=== PATIENT | male | born 1930 | race Asian ===

== ENCOUNTER 2017-03-04 14:00 | Outpatient (RCR) | payer MEDICARE, BC | END 2017-03-09 | disposition home or self-care (01) | LOC: WSPT | DX: Z47.1 Aftercare following joint replacement surgery (principal); M25.862 Other specified joint disorders, left knee; Z96.652 Presence of left artificial knee joint | CPT/HCPCS: G8978-GP; G8979-GP ==

== ENCOUNTER 2017-05-12 16:00 | Outpatient (RCR) | payer MEDICARE, BC | END 2017-06-02 09:14 | disposition home or self-care (01) | LOC: WSPT 16:00 | DX: Z47.1 Aftercare following joint replacement surgery (principal); Z96.652 Presence of left artificial knee joint | CPT/HCPCS: G8978-GP; G8979-GP; G8980-GP ==

== ENCOUNTER 2018-06-04 15:30 | Outpatient (RCR) | payer MEDICARE, BC ==
[2004-09-17 08:55] VITALS: TEMP 97
[2018-06-19] MEDS ORDERED: ELIQUIS 5MG PO (23:59)
[2018-06-20] MEDS ORDERED: LIPITOR 40MG TA40 MG PO
[2018-06-20] MEDS ORDERED: CALCITRATE 3151 TAB PO (00:01)
[2018-06-20] MEDS ORDERED: THE MEDICINE S200 M2 PO (00:02)
[2018-06-20] MEDS ORDERED: GOOD NEIGH1200 MG/15 (00:03)
[2018-06-20] MEDS ORDERED: FLOMAX 0.40.4 MG/CAP PO (00:03)
[2018-06-20] MEDS ORDERED: SYNTHROID0.1 MG/TAB PO (00:04)
[2018-06-20] MEDS ORDERED: PROCARDIA XL 3030 MG PO (00:04)
[2018-06-20] MEDS ORDERED: PRILOSEC 20MG20 MG PO (00:05)
[2018-06-20] MEDS ORDERED: PROAIR HFA0.09 MG/AC IH (00:06)
[2018-06-20] MEDS ORDERED: B-121000 MCG PO (00:09)
[2018-06-20] MEDS ORDERED: OMEGA-3 FISH1000 MG PO (00:09)
[2018-06-20] MEDS ORDERED: VITAMIN D 1001000 IU PO (00:10)
[2018-06-20] MEDS ORDERED: HCTZ12.5TAB PO (00:12)
[2018-06-22] MEDS ORDERED: LEVAQUIN 5500 MG/TA1 PO (03:19)
[2018-06-25] MEDS ORDERED: CEFTIN500 MG PO (14:09)
[2018-06-25] MEDS ORDERED: COMBIRESP IH (14:10)
[2018-06-25] MEDS ORDERED: PREDNISONE20 MG PO (14:13)
[2018-06-25] MEDS ORDERED: K-TAB20 PO (14:16)
[2018-06-25] MEDS ORDERED: LASIX 20MG TABL20 MG PO (14:16)
== END 2018-06-29 16:06 | disposition home or self-care (01) ==
LOC: WSPT 15:30
DX: M47.816 Spondylosis without myelopathy or radiculopathy, lumbar region (principal); M48.061 Spinal stenosis, lumbar region without neurogenic claudication; M41.86 Other forms of scoliosis, lumbar region

== ENCOUNTER 2018-06-19 22:52 | Observation (INO) | payer MEDICARE, BC ==
[~2018-06-19] VITALS: Ht 160 cm; Wt 65.4 kg
[2018-06-19 23:51] LABS: HEMATOCRIT 39.4 % (42.0-52.0); HEMOGLOBIN 13.6 g/dl (13.5-18.0); MEAN CELL VOLUME 95 fl (80.0-100.0); MEAN CORPUSCULAR HEMOGLOBIN 33 pg (27.0-31.0); MEAN CORPUSCULAR HGB CONC 35 g/dl (33.0-37.0); PLATELET COUNT 50 K/mm3 (130-400); RED BLOOD COUNT 4.13 M/mm3 (4.20-5.60); REDCELL DISTRIBUTION WIDTH-CV 13.6 % (11.5-14.5)
[2018-06-19 23:56] LABS: INR 1.6 (0.8-3.0); PROTHROMBIN TIME 18.2 SECONDS (9.7-12.8)
[2018-06-19 23:59] LABS: PARTIAL THROMBOPLASTIN TIME 30.6 SECONDS (26.0-37.0)
[2018-06-19] MEDS ORDERED: ELIQUIS 5MG PO (23:59)
[2018-06-20] LABS: ALANINE AMINOTRANSFERASE 19 U/L (21-72); ALBUMIN 3.6 gm/dL (3.5-5.0); ALKALINE PHOSPHATASE 91 U/L (50-136); ANION GAP 9 mmol/L (7-16); AST,SGOT 25 U/L (15-37); BILIRUBIN,TOTAL 0.7 mg/dL (0.0-1.0); BLOOD UREA NITROGEN 22 mg/dL (9-20); C-REACTIVE PROTEIN 6.6 mg/dL (0.0-0.9); CARBON DIOXIDE 26 mmol/L (22-30); CHLORIDE 94 mmol/L (98-107); CREATININE, serum 0.67 (0.66-1.25); GLUCOSE 127 mg/dL (74-106); LIPASE 26 U/L (23-300); POTASSIUM 4.1 mmol/L (3.4-5.0); SODIUM 129 mmol/L (137-145); TOTAL PROTEIN 6.4 gm/dL (6.4-8.2)
[2018-06-20] MEDS ORDERED: LIPITOR 40MG TA40 MG PO
[2018-06-20] MEDS ORDERED: CALCITRATE 3151 TAB PO (00:01)
[2018-06-20] MEDS ORDERED: THE MEDICINE S200 M2 PO (00:02)
[2018-06-20] MEDS ORDERED: GOOD NEIGH1200 MG/15 (00:03)
[2018-06-20] MEDS ORDERED: FLOMAX 0.40.4 MG/CAP PO (00:03)
[2018-06-20] MEDS ORDERED: SYNTHROID0.1 MG/TAB PO (00:04)
[2018-06-20] MEDS ORDERED: PROCARDIA XL 3030 MG PO (00:04)
[2018-06-20] MEDS ORDERED: PRILOSEC 20MG20 MG PO (00:05)
[2018-06-20] MEDS ORDERED: PROAIR HFA0.09 MG/AC IH (00:06)
[2018-06-20] MEDS ORDERED: OMEGA-3 FISH1000 MG PO (00:09)
[2018-06-20] MEDS ORDERED: B-121000 MCG PO (00:09)
[2018-06-20 00:10] LABS: TROPONIN-I < 0.012 ng/mL (0.000-0.035)
[2018-06-20] MEDS ORDERED: VITAMIN D 1001000 IU PO (00:10)
[2018-06-20] MEDS ORDERED: HCTZ12.5TAB PO (00:12)
[2018-06-20 00:38] LABS: BAND 22 % (0-10); EOSINOPHIL 2 % (0-4); LYMPHOCYTE 11 % (20.0-51.0); NEUTROPHILS 57 % (42.0-75.2); OVALOCYTES 1+; PLATELET ESTIMATE DECREASED (NORMAL)
[2018-06-20 00:39] LABS: HYPOCHROMIA 1+
[2018-06-20 01:11] LABS: COLLECTION METHOD CLEAN CATCH
[2018-06-20 01:17] LABS: MUCOUS Present /lpf; PH 7 (5-8); SQUAMOUS EPITHELIAL None Seen /hpf; URINE APPEARANCE Clear; URINE BACTERIA None Seen /hpf; URINE BILIRUBIN Negative (NEGATIVE); URINE BLOOD Negative (NEGATIVE); URINE COLOR Yellow; URINE GLUCOSE Negative (NEGATIVE); URINE KETONE Negative (NEGATIVE); URINE LEUKOCYTE ESTERASE Negative (NEGATIVE); URINE NITRATE Negative (NEGATIVE); URINE PROTEIN(semi-quant) Negative (NEGATIVE); URINE RBC 0-2 /hpf; URINE UROBILINOGEN Negative (NEGATIVE)
[2018-06-20 04:17] VITALS: BP 117/73; PULSE 87; TEMP 97.4
--- NOTE | 2018-06-20 04:54 | NUR ---
PT ADMITTED FROM .. WITH ABD PAIN, ELEVATED TEMPERATURE, POSSIBLY CHOLECYSTITIS. SEE 5 PAGE ASSESSMENT.
--- NOTE | 2018-06-20 06:42 | NUR ---
RESTING QUIETLY. NO c/o PAIN. NO N/V. NO DYSPNEA. PT VOIDING. PT DENIES ABDOMINAL DISCOMFORT.
[2018-06-20 07:02] LABS: MEAN CELL VOLUME 97 fl (80.0-100.0); MEAN CORPUSCULAR HEMOGLOBIN 34 pg (27.0-31.0); MEAN CORPUSCULAR HGB CONC 35 g/dl (33.0-37.0); MEAN PLATELET VOLUME 11.6 fl (7.4-10.4); RED BLOOD COUNT 3.57 M/mm3 (4.20-5.60); REDCELL DISTRIBUTION WIDTH-CV 13.6 % (11.5-14.5)
[2018-06-20 07:04] LABS: HEMATOCRIT 34.6 % (42.0-52.0)
[2018-06-20 07:06] LABS: ALBUMIN 2.9 gm/dL (3.5-5.0); BILIRUBIN,TOTAL 0.6 mg/dL (0.0-1.0); CALCIUM 8.4 mg/dL (8.4-10.2); CREATININE, serum 0.67 (0.66-1.25); PLATELET COUNT 43 K/mm3 (130-400); POTASSIUM 4.2 mmol/L (3.4-5.0); TOTAL PROTEIN 5.3 gm/dL (6.4-8.2)
[2018-06-20 08:00] VITALS: BP 109/58; PULSE 60; TEMP 97.7
--- NOTE | 2018-06-20 10:43 | NUR ---
Plan: SW met with patient and in room. Patient reports that he plans to go home unless otherwise specified by doctor. Patient has heavy accents but is clear on decision. Patient report that he resides locally with his . Patient shares that he does not need home health. Patient reports that his son Cong and DTR-in law Dr. Akhtar are his emergency contact and we have the phone numbers on file. Patient reports PCP Dr. Brown. Denies DPOA and Declines setting on up. Patient reports that he uses a cane daily but no other DME. Patient reports that he is able to transport self home. No additional needs identified.
[2018-06-20 11:45] LABS: BAND 2 % (0-10); EOSINOPHIL 2 % (0-4); LYMPHOCYTE 17 % (20.0-51.0); NEUTROPHILS 78 % (42.0-75.2); PLATELET ESTIMATE DECREASED (NORMAL)
[2018-06-20 12:00] VITALS: BP 129/66; PULSE 66; TEMP 97.8
--- NOTE | 2018-06-20 13:00 | NUR ---
Denied abdominal pain. Afebrile. Abdominal ultrasound done. Dr. Batista saw patient. Dismissed to home with family.
== END 2018-06-20 13:00 | disposition home or self-care (01) ==
LOC: COL.ER 22:52 → SURG 06-20 03:14
PROVIDERS: Emergency Medicine; ADMIT Surgery
DX: R05 Cough (principal); R10.10 Upper abdominal pain, unspecified; M81.0 Age-related osteoporosis without current pathological fracture; D69.6 Thrombocytopenia, unspecified; I49.5 Sick sinus syndrome; I48.91 Unspecified atrial fibrillation; Z79.01 Long term (current) use of anticoagulants; Z95.0 Presence of cardiac pacemaker
CPT/HCPCS: G0378; J1956; J7030; J7120; Q9967

== ENCOUNTER 2018-07-14 13:21 | Emergency (ER) | payer MEDICARE, BC ==
[~2018-07-14] VITALS: Ht 160 cm; Wt 63.6 kg
[~2018-07-14 13:21] MED LIST: B-121000 MCG PO; CALCITRATE 3151 TAB PO; CEFTIN500 MG PO; COMBIRESP IH; ELIQUIS 5MG PO; FLOMAX 0.40.4 MG/CAP PO; GOOD NEIGH1200 MG/15; HCTZ12.5TAB PO; K-TAB20 PO; LASIX 20MG TABL20 MG PO; LEVAQUIN 5500 MG/TA1 PO; LIPITOR 40MG TA40 MG PO; OMEGA-3 FISH1000 MG PO; PREDNISONE20 MG PO; PRILOSEC 20MG20 MG PO; PROAIR HFA0.09 MG/AC IH; PROCARDIA XL 3030 MG PO; SYNTHROID0.1 MG/TAB PO; THE MEDICINE S200 M2 PO; VITAMIN D 1001000 IU PO
[2018-07-14 13:27] VITALS: TEMP 97.4
[2018-07-14 14:08] LABS: HEMOGLOBIN 11.7 g/dl (13.5-18.0); MEAN CELL VOLUME 96 fl (80.0-100.0); MEAN CORPUSCULAR HEMOGLOBIN 33 pg (27.0-31.0); MEAN CORPUSCULAR HGB CONC 34 g/dl (33.0-37.0); MEAN PLATELET VOLUME 11.6 fl (7.4-10.4); PLATELET COUNT 60 K/mm3 (130-400); RED BLOOD COUNT 3.57 M/mm3 (4.20-5.60); REDCELL DISTRIBUTION WIDTH-CV 16.3 % (11.5-14.5)
[2018-07-14 14:10] LABS: HEMATOCRIT 34.4 % (42.0-52.0)
[2018-07-14 14:22] LABS: ANISOCYTOSIS 1+; BAND 1 % (0-10); EOSINOPHIL 4 % (0-4); LYMPHOCYTE 31 % (20.0-51.0); NEUTROPHILS 61 % (42.0-75.2); PLATELET ESTIMATE DECREASED (NORMAL)
[2018-07-14 14:25] LABS: ALBUMIN 2.9 gm/dL (3.5-5.0); BILIRUBIN,TOTAL 0.7 mg/dL (0.0-1.0); C-REACTIVE PROTEIN 1.4 mg/dL (0.0-0.9); CALCIUM 8.3 mg/dL (8.4-10.2); CREATININE, serum 0.78 (0.66-1.25); POTASSIUM 3.9 mmol/L (3.4-5.0); TOTAL PROTEIN 6.8 gm/dL (6.4-8.2)
[2018-07-14 14:28] LABS: ERYTHROCYTE SEDIMENTATION RATE 23 mm/hr (0-30)
[2018-07-14] MEDS ORDERED: PREDNISONE10 MG PO (14:43)
[2018-07-14] MEDS ORDERED: SYNTHROID0.112 MG/T PO (14:54)
[2018-07-14 14:55] VITALS: BP 127/77; PULSE 68
== END 2018-07-14 14:55 | disposition home or self-care (01) ==
LOC: COL.ER 13:21
PROVIDERS: Family Medicine
DX: T36.8X5A Adverse effect of other systemic antibiotics, initial encounter (principal)
CPT/HCPCS: J2930; J7030

== ENCOUNTER 2018-10-08 15:30 | Outpatient (RCR) | payer MEDICARE, BC ==
[~2018-10-08 15:30] MED LIST changes: +PREDNISONE10 MG PO; +SYNTHROID0.112 MG/T PO
== END 2018-10-10 | disposition still patient (30) ==
LOC: WSPT
DX: M54.9 Dorsalgia, unspecified (principal); R53.1 Weakness

== ENCOUNTER 2018-11-11 15:45 | Outpatient (RCR) | payer MEDICARE, BC | END 2018-12-02 10:01 | disposition home or self-care (01) | LOC: WSPT 15:45 | DX: M54.9 Dorsalgia, unspecified (principal); R53.1 Weakness ==